=== PATIENT | female | born 2000 | race Hispanic/Latino ===

== ENCOUNTER 2018-10-29 15:11 | Emergency (ER) | payer BC ==
[2018-10-29 15:56] VITALS: O2SAT 100; BMI 21.4
[2018-10-29] MEDS ORDERED: Sodium Chloride 0.9% 1,000 ML IV STA ×2 (16:06→17:42)
--- NOTE | 2018-10-29 16:20 | ED PDOC ---
Arrival/HPI - General Chief Complaint: GI Problem Time Seen by Provider: 10/29/18 15:20 Historian: Patient - History of Present Illness Narrative History of Present Illness (Text): 10/29/18 16:08 18-year-old female presents today with a 3 to 4-week history of upper abdominal pain with nausea and vomiting. Patient states yesterday she had a medical . Patient states she was 6 weeks prior to the termination yes terday. Patient denies any vaginal bleeding. Patient states when she saw the pay clerk for the termination of the yesterday the pay clerk did not feel that the upper abdominal pain and vomiting was related to the . Patient states she believes that she has an ulcer. Patient states she has been having on and off and worsening symptoms since she went on a severe diet over the summer. Patient denies urinary symptoms. Denies back pain. Denies chest pain or shortness of breath. No medications have been taken at home. No other complaints. Symptom Onset: Gradual Quality: Aching, Stabbing, Burning Severity Level: Moderate Past Medical History - Provider Review Nursing Documentation Reviewed: Yes - Travel History Have you recently traveled outside [place] w/in the past 3 mons?: No - Past History Past History: No Previous - Infectious Disease Hx of Infectious Diseases: None - Tetanus Immunization Tetanus Immunization: Up to Date - Psychiatric Hx Depression: Yes Hx Emotional Abuse: No Hx Physical Abuse: No Hx Substance Use: No - Surgical History Other/Comment: ear surgery when she was a baby - Anesthesia Hx Anesthesia: Yes Hx Anesthesia Reactions: No Hx Malignant Hyperthermia: No - Suicidal Assessment Feels Threatened In Home Enviroment: No Family/Social History - Physician Review Nursing Documentation Reviewed: Yes Family/Social History: Unknown Family HX Smoking Status: Never Smoked Hx Alcohol Use: No Hx Substance Use: No Hx Substance Use Treatment: No Allergies/Home Meds Allergies/Adverse Reactions: Allergies No Known Allergies Allergy (Verified 10/29/18 15:39) as per patient Review of Systems - Review of Systems Constitutional: absent: Fatigue, Fevers Respiratory: absent: SOB, Cough Cardiovascular: absent: Chest Pain, Palpitations Gastrointestinal: Abdominal Pain, Nausea, Vomiting. absent: Constipation, Diarrhea Genitourinary Female: absent: Dysuria, Frequency, Hematuria Musculoskeletal: absent: Arthralgias, Back Pain, Neck Pain Skin: absent: Rash, Pruritis Neurological: absent: Headache, Dizziness Psychiatric: absent: Anxiety, Depression Physical Exam Vital Signs Reviewed: Yes Vital Signs Temp Pulse Resp BP Pulse Ox 10/29/18 15:40 97.8 F 53 L 18 112/71 100 Temperature: Afebrile Blood Pressure: Normal Pulse: Regular Respiratory Rate: Normal Appearance: Positive for: Well-Appearing, Non-Toxic, Comfortable Pain Distress: None Mental Status: Positive for: Alert and Oriented X 3 - Systems Exam Head: Present: Atraumatic Mouth: Present: Moist Mucous Membranes Neck: Present: Normal Range of Motion Respiratory/Chest: Present: Clear to Auscultation, Good Air Exchange. No: Respiratory Distress, Accessory Muscle Use Cardiovascular: Present: Regular Rate and Rhythm, Normal S1, S2. No: Murmurs Abdomen: Present: Tenderness (+ epigastric and RUQ tenderness. ). No: Distention, Peritoneal Signs, Rebound, Guarding Back: Present: Normal Inspection. No: CVA Tenderness, Midline Tenderness, Paraspinal Tenderness Upper Extremity: Present: Normal ROM Lower Extremity: Present: Normal ROM Neurological: Present: GCS=15, Speech Normal Skin: Present: Warm, Dry, Normal Color. No: Rashes Psychiatric: Present: Alert, Oriented x 3 Medical Decision Making ED Course and Treatment: 10/29/18 16:10 Patient is nontoxic well appearing with stable vital signs presenting with upper abdominal pain over the past 3-4 weeks. Patient began to vomit in the emergency room. I again spoke with the patient. With nurse at bedside the patient again verified that she had a medical yesterday and has no intention of keeping the baby. She has agreed to taking Zofran for nausea. She was made aware that the nausea medication will cause harm to the growing fetus. Patient states she has already taking the medications for termination and has no intention of keeping the baby. CBC: wnl CMP: wnl Lipase; wnl Urinalysis: no leukocytes + ketones Ultrasound:FINDINGS: LIVER: Measures 14.5 cm. Normal echogenicity of the liver parenchyma. No mass. No intrahepatic bile duct dilatation. GALLBLADDER: There are no gallstones, wall thickening or pericholecystic fluid. The sonographic Nieto's sign is negative. COMMON BILE DUCT: Measures 3.1 mm. No stones. No dilatation. PANCREAS: Unremarkable as visualized. No mass. No ductal dilatation. RIGHT KIDNEY: Measures 10.7cm. Normal echogenicity. No calculus, mass, or hydronephrosis. LEFT KIDNEY: Measures 10.9 cm. Normal echogenicity. No calculus, mass, or hydronephrosis. SPLEEN: Normal in size and contour. No mass. AORTA: No aneurysmal dilatation. IVC: Unremarkable. OTHER FINDINGS: None. IMPRESSION: Unremarkable abdominal sonogram. Patient reassessment:pt feeling much better after medications. Discussed all results with patient in depth. Patient states she has an appointment with GI specialist Dr. Felton tomorrow in the office. Patient was advised to take Pepcid 1 tablet daily, increase fluids. Patient was advised to avoid spicy foods, greasy foods, chocolate and pasta sauce. Patient was advised immediate return if symptoms worsen persist or if new concerning symptoms develop. I will give the patient a prescription for Zofran for nausea 2 tablets until her appointment tomorrow. I will give the patient a prescription for Pepcid. Patient verbalizes understanding of discharge instructions and need for immediate followup. All aspects of this case were discussed the attending of record. Impression: Abdominal pain Pepcid one tablet daily Follow up with the GI doctor tomorrow Increase fluids Zofran 1 tablet every 8 hours as needed for nausea Follow up with primary care physician within the next 2 days Return immediately if symptoms worsen persist or if new symptoms develop: High fevers, increasing pain, vomiting, diarrhea or any other concerning symptoms develop - RAD Interpretation Radiology Orders: 10/29/18 16:05 ABDOMEN COMPLETE [US] Stat - Medication Orders Current Medication Orders: Famotidine (Pepcid) 20 mg IVP STAT STA Stop: 10/29/18 16:07 Sodium Chloride (Sodium Chloride 0.9%) 1,000 mls @ 999 mls/hr IV .Q1H1M STA Stop: 10/29/18 17:06 Disposition/Present on Arrival - Present on Arrival Any Indicators Present on Arrival: No History of DVT/PE: No History of Uncontrolled Diabetes: No Urinary Catheter: No History of Decub. Ulcer: No History Surgical Site Infection Following: None - Disposition Have Diagnosis and Disposition been Completed?: Yes Diagnosis: Abdominal pain, Nausea & vomiting Disposition: HOME/ ROUTINE Disposition Time: 17:43 Patient Plan: Discharge Patient Problems: Current Active Problems Problem Status Onset Abdominal pain Acute Nausea & vomiting Acute Condition: GOOD Discharge Instructions (ExitCare): Acute Abdomen (Belly Pain), Adult (DC), Nausea and Vomiting, Adult Additional Instructions: Pepcid one tablet daily Follow up with the GI doctor tomorrow Increase fluids Zofran 1 tablet every 8 hours as needed for nausea Follow up with primary care physician within the next 2 days Return immediately if symptoms worsen persist or if new symptoms develop: High fevers, increasing pain, vomiting, diarrhea or any other concerning symptoms develop Prescriptions: Famotidine [Pepcid] 20 mg PO DAILY #30 tab Ondansetron [Zofran] 4 mg PO Q8H PRN #2 tab PRN Reason: Nausea/Vomiting Referrals: Ceasar Felton DO [Staff Provider] - Follow up with primary Mary Nicholson MD [Medical Doctor] - Follow up with primary [facility] [Outside] - Follow up with primary Forms: [employer] (Swedish)
[2018-10-29 16:52] LABS: BASO # 0.03 K/mm3 (0.0-2.0); BASO % 0.3 % (0.0-3.0); EOS % 0.2 % (1.5-5.0); HEMOGLOBIN 12.8 g/dL (12.0-16.0); LYMPH # 1.3 (1.2-3.4); LYMPH % 12.6 % (22.0-35.0); MEAN CELL VOLUME 87.2 fl (80.0-105.0); MEAN CORPUSCULAR HEMOGLOBIN 28.8 pg (25.0-35.0); MEAN CORPUSCULAR HGB CONC 33.1 g/dl (31.0-37.0); MEAN PLATELET VOLUME 10.5 fl (7.0-11.0); MONO # 0.6 (0.1-0.6); MONO % 5.3 % (1.0-6.0); RBC 4.44 10^6/uL (3.5-6.1); RED CELL DISTRIBUTION WIDTH 13.1 % (11.5-14.5); WHITE BLOOD COUNT 10.4 10^3/uL (4.5-11.0)
[2018-10-29 16:59] LABS: URINE BILIRUBIN SMALL (NEGATIVE); URINE BLOOD TRACE-LYSED (NEGATIVE); URINE GLUCOSE (UA) NEGATIVE (NEGATIVE); URINE LEUKOCYTE ESTERASE NEGATIVE Leu/uL (NEGATIVE); URINE PROTEIN 30 mg/dL (<30 mg/dL); URINE UROBILINOGEN 0.2 E.U./dL (<1 E.U./dL)
[2018-10-29 17:00] LABS: URINE COLOR DARK YELLOW (YELLOW)
[2018-10-29 17:01] LABS: URINE APPEARANCE SLIGHT-CLOUDY (CLEAR)
[2018-10-29 17:02] LABS: ALB/GLOB RATIO 1.3 (1.1-1.8); ALBUMIN 4.3 g/dL (3.0-4.8); ALT/SGPT 18 U/L (7-56); AST/SGOT 19 U/L (14-36); BLOOD UREA NITROGEN 13 mg/dL (7-21); GFR NON-AFRICAN AMERICAN > 60; LIPASE 53 U/L (23-300)
--- NOTE | 2018-10-29 17:40 | US ---
Date of service: 10/29/2018 HISTORY: Abd pain x 3-4 weeks. medical yesterday COMPARISON: None. TECHNIQUE: Grayscale imaging was performed. FINDINGS: LIVER: Measures 14.5 cm. Normal echogenicity of the liver parenchyma. No mass. No intrahepatic bile duct dilatation. GALLBLADDER: There are no gallstones, wall thickening or pericholecystic fluid. The sonographic Nieto's sign is negative. COMMON BILE DUCT: Measures 3.1 mm. No stones. No dilatation. PANCREAS: Unremarkable as visualized. No mass. No ductal dilatation. RIGHT KIDNEY: Measures 10.7cm. Normal echogenicity. No calculus, mass, or hydronephrosis. LEFT KIDNEY: Measures 10.9 cm. Normal echogenicity. No calculus, mass, or hydronephrosis. SPLEEN: Normal in size and contour. No mass. AORTA: No aneurysmal dilatation. IVC: Unremarkable. OTHER FINDINGS: None. IMPRESSION: Unremarkable abdominal sonogram.
[2018-10-29 19:34] VITALS: TEMP 98
[2018-10-29 20:34] VITALS: BP 117/65; PULSE 75; RESP 18
== END 2018-10-29 19:45 | disposition home or self-care (01) ==
LOC: ED 15:11
DX: R10.9 Unspecified abdominal pain (principal); R11.2 Nausea with vomiting, unspecified; Z98.890 Other specified postprocedural states
CPT/HCPCS: 76700; 80053; 81001; 83690; 85025; 96361; 96374; 96375; 99284; J2405; J7030

== ENCOUNTER 2018-11-01 04:15 | Emergency (ER) | payer BC ==
[2018-11-01 04:23] VITALS: BMI 21.4
[2018-11-01 04:38] VITALS: BP 120/61; PULSE 58; RESP 18; TEMP 97.8; O2SAT 98
[2018-11-01] MEDS ORDERED: Sodium Chloride 0.9% 1,000 ML IV STA (04:42)
[2018-11-01 05:20] LABS: BASO # 0.01 {null, K/mm3} (0.0-2.0); BASO % 0.1 % (0.0-3.0); EOS # 0.1 (0.0-0.7); EOS % 0.8 % (1.5-5.0); HEMOGLOBIN 12.3 g/dL (12.0-16.0); LYMPH % 23.4 % (22.0-35.0); MEAN CELL VOLUME 87.5 fl (80.0-105.0); MEAN CORPUSCULAR HGB CONC 33.2 g/dl (31.0-37.0); MEAN PLATELET VOLUME 10.7 fl (7.0-11.0); MONO # 0.6 (0.1-0.6); MONO % 7.2 % (1.0-6.0); RBC 4.24 {null, 10^6/uL} (3.5-6.1); RED CELL DISTRIBUTION WIDTH 13.2 % (11.5-14.5); WHITE BLOOD COUNT 8.4 {null, 10^3/uL} (4.5-11.0)
--- NOTE | 2018-11-01 05:20 | ED PDOC ---
Arrival/HPI - General Chief Complaint: Abdominal Pain Time Seen by Provider: 11/01/18 04:20 - History of Present Illness Narrative History of Present Illness (Text): 18 yr old F w/ GERD, ulcer and 4d s/p elective w/ medication p/w abdominal pain, nausea, vomiting. Pt notes epigastric abdominal pain similar to when she was here 3d prior, and feels exactly alike her previous epigastric pain for which she had intermittently for one month. She deneis any ruq abd pain, lower pelvic pain, periumbilical pain, RLQ or LLQ pain. She denies any vaginal discharge, urinary complaints or crampy like menstrual pain. She denies any back pain. She notes x2 episodes of nbnb vomiting. She denies any diarrhea, constipation, dark or bloody stool. No abnormal vaginal d/c. No fever, chills or night sweats. No other complaints. OBGYN: She does not remember the name GI: Dr. Nugent 11/01/18 05:49 Past Medical History - Past History Past History: No Previous - Infectious Disease Hx of Infectious Diseases: None - Tetanus Immunization Tetanus Immunization: Up to Date - Psychiatric Hx Depression: Yes Hx Emotional Abuse: No Hx Physical Abuse: No Hx Substance Use: Yes (weed) - Surgical History Other/Comment: ear surgery when she was a baby - Anesthesia Hx Anesthesia: Yes Hx Anesthesia Reactions: No Hx Malignant Hyperthermia: No - Suicidal Assessment Feels Threatened In Home Enviroment: No Family/Social History Family/Social History: Unknown Family HX Smoking Status: Never Smoked Hx Alcohol Use: No Hx Substance Use: Yes (weed) Hx Substance Use Treatment: No Allergies/Home Meds Allergies/Adverse Reactions: Allergies No Known Allergies Allergy (Verified 10/29/18 15:39) as per patient Review of Systems - Review of Systems Constitutional: absent: Fatigue, Weight Change Eyes: absent: Vision Changes, Photophobia ENT: absent: Hearing Changes, Tinnitus Respiratory: absent: SOB, Cough, Sputum Cardiovascular: absent: Chest Pain, Palpitations Gastrointestinal: Abdominal Pain, Nausea, Vomiting. absent: Stool Changes, Constipation, Diarrhea, Appetite Changes, Hematochezia, Hematemesis, Anorexia, Food Intolerance Genitourinary Female: absent: Dysuria, Frequency, Hematuria Musculoskeletal: absent: Arthralgias, Back Pain, Neck Pain Skin: absent: Rash, Pruritis, Skin Lesions Neurological: absent: Headache, Dizziness Endocrine: absent: Diaphoresis, Polyuria Hemo/Lymphatic: absent: Adenopathy, Easy Bleeding Psychiatric: absent: Anxiety, Depression Physical Exam Vital Signs Temp Pulse Resp BP Pulse Ox 11/01/18 04:27 97.8 F 58 L 18 120/61 98 Temperature: Afebrile Blood Pressure: Normal Respiratory Rate: Normal Appearance: Positive for: Well-Appearing, Non-Toxic, Comfortable Pain Distress: None Mental Status: Positive for: Alert and Oriented X 3 - Systems Exam Head: Present: Atraumatic, Normocephalic Pupils: Present: PERRL Extroacular Muscles: Present: EOMI Conjunctiva: Present: Normal Mouth: Present: Moist Mucous Membranes Neck: Present: Normal Range of Motion. No: Meningeal Signs, MIDLINE TENDERNESS Respiratory/Chest: Present: Clear to Auscultation, Good Air Exchange. No: Respiratory Distress, Accessory Muscle Use Cardiovascular: Present: Regular Rate and Rhythm, Normal S1, S2. No: Murmurs Abdomen: Present: Tenderness (epigastric), Normal Bowel Sounds. No: Distention, Peritoneal Signs, McBurney's Point Tender, Rovsing's Sign Present Back: Present: Normal Inspection. No: CVA Tenderness, Midline Tenderness Upper Extremity: Present: Normal Inspection. No: Cyanosis, Edema Lower Extremity: Present: Normal Inspection. No: Edema Neurological: Present: GCS=15, CN II-XII Intact, Speech Normal Skin: Present: Warm, Dry, Normal Color. No: Rashes Psychiatric: Present: Alert, Oriented x 3, Normal Insight, Normal Concentration Medical Decision Making ED Course and Treatment: 18 yr old F w/ GERD, ulcer and 4d s/p elective w/ medication p/w abdominal pain, nausea, vomiting. On exam, well appearing in NAD, mild epigastric pain on palpation. No dark or bloody stool. No peritoneal signs or guarding. Given largely benign exam, recent visit for simliar complaint, will seek labs, treatment for GERD like pain and re-eval for n/v. 11/01/18 06:20 Pt notes pain fully resolved. Tolerating clears. States she is ready to go home. labs unremarkable, repeat abd exam unremarkable, pt now non-ttp and remains without any peritoneal or guarding. clear for d/c home with return indications and f/u. - Medication Orders Current Medication Orders: Sodium Chloride (Sodium Chloride 0.9%) 1,000 mls @ 999 mls/hr IV .Q1H1M STA Stop: 11/01/18 05:42 Discontinued Medications Famotidine (Pepcid) 20 mg IVP STAT STA Stop: 11/01/18 04:43 Metoclopramide HCl (Reglan) 10 mg IVP STAT STA Stop: 11/01/18 04:43 Disposition/Present on Arrival - Present on Arrival Any Indicators Present on Arrival: No History of DVT/PE: No History of Uncontrolled Diabetes: No Urinary Catheter: No History of Decub. Ulcer: No History Surgical Site Infection Following: None - Disposition Have Diagnosis and Disposition been Completed?: Yes Diagnosis: Epigastric pain Disposition: HOME/ ROUTINE Disposition Time: 06:19 Patient Problems: Current Active Problems Problem Status Onset Epigastric pain Acute Condition: STABLE Discharge Instructions (ExitCare): Acute Abdomen (Belly Pain), Adult (DC), Nausea and Vomiting, Adult Additional Instructions: HEYDI COX, thank you for letting us take care of you today. Your provider was Dirk Nelson and you were treated for abdominal pain. The emergency medical care you received today was directed at your acute symptoms. If you were prescribed any medication, please fill it and take as directed. It may take several days for your symptoms to resolve. Return to the Emergency Department if your symptoms worsen, do not improve, or if you have any other problems. Please contact your doctor or call one of the physicians/clinics you have been referred to that are listed on the Patient Visit Information form that is included in your discharge packet. Bring any paperwork you were given at discharge with you along with any medications you are taking to your follow up visit. Our treatment cannot replace ongoing medical care by a primary care provider outside of the emergency department. Thank you for allowing the [facility] team to be part of your care today. If you had an X-Ray or CT scan: A Radiologist will review the ED reading if any change in treatment is needed we will contact you. If you had a blood, urine, or wound culture: It will take several days for the results, if any change in treatment is needed we will contact you. If you had an STI test: It will take 48 hours for the results. Please call after 1 week if you have not heard back. Referrals: Ceasar Felton DO [Staff Provider] - Follow up with primary Grazyna Rapp MD [Staff Provider] - Follow up with primary Mary Nicholson MD [Medical Doctor] - Follow up with primary [email or web address] [Outside] - Follow up with primary [facility] [Outside] - Follow up with primary [facility] [Outside] - Follow up with primary [facility] [Outside] - Follow up with primary Forms: [email or web address] (Italian), WORK NOTE
[2018-11-01 06:17] LABS: ALB/GLOB RATIO 1.4 (1.1-1.8); ALBUMIN 4.1 g/dL (3.0-4.8); ALT/SGPT 14 U/L (7-56); AST/SGOT 17 U/L (14-36); BLOOD UREA NITROGEN 10 mg/dL (7-21); CALCIUM 9.6 mg/dL (8.4-10.5); GFR NON-AFRICAN AMERICAN > 60; LIPASE 130 U/L (23-300)
== END 2018-11-01 06:35 | disposition home or self-care (01) ==
LOC: ED 04:15
DX: R10.13 Epigastric pain (principal)
CPT/HCPCS: 80053; 81025; 83690; 85025; 96374; 96375; 99284; J2765; J7030

== ENCOUNTER 2018-11-04 08:33 | Emergency (ER) | payer BC ==
[2018-11-04 08:33] VITALS: BMI 21.4
[2018-11-04] MEDS ORDERED: Sodium Chloride 0.9% 1,000 ML IV STA (09:22)
[2018-11-04 10:04] LABS: BASO # 0.02 K/mm3 (0.0-2.0); BASO % 0.3 % (0.0-3.0); EOS # 0.1 (0.0-0.7); EOS % 1.7 % (1.5-5.0); HEMOGLOBIN 11.8 g/dL (12.0-16.0); LYMPH # 1.5 (1.2-3.4); LYMPH % 23.1 % (22.0-35.0); MEAN CELL VOLUME 86.9 fl (80.0-105.0); MEAN CORPUSCULAR HEMOGLOBIN 29.1 pg (25.0-35.0); MEAN CORPUSCULAR HGB CONC 33.4 g/dl (31.0-37.0); MEAN PLATELET VOLUME 10.6 fl (7.0-11.0); MONO # 0.4 (0.1-0.6); MONO % 5.5 % (1.0-6.0); RBC 4.06 10^6/uL (3.5-6.1); RED CELL DISTRIBUTION WIDTH 13.2 % (11.5-14.5); WHITE BLOOD COUNT 6.5 10^3/uL (4.5-11.0)
[2018-11-04 10:07] LABS: ALB/GLOB RATIO 1.4 (1.1-1.8); ALBUMIN 4.1 g/dL (3.0-4.8); ALT/SGPT 12 U/L (7-56); AST/SGOT 16 U/L (14-36); BLOOD UREA NITROGEN 12 mg/dL (7-21); CALCIUM 9.6 mg/dL (8.4-10.5); GFR NON-AFRICAN AMERICAN > 60; LIPASE 57 U/L (23-300)
--- NOTE | 2018-11-04 10:46 | ED PDOC ---
Arrival/HPI - General Chief Complaint: Abdominal Pain Time Seen by Provider: 11/04/18 09:03 Historian: Patient - History of Present Illness Narrative History of Present Illness (Text): 11/04/18 09:03 Heydi Cox is a 18 year old female, with a past medical history of GERD, gastric ulcers and 1 week s/p elective , who presents to the emergency department complaining of sharp epigastric pain, nausea, and vomiting since 1 month. Patient informs visiting PMD who appreciated ulcers and scheduled endoscopy for 11/12/18. Patient also notes constipation and states she is dehydrated. Patient informs taking prescribed medications from PMD orally causes nausea / vomiting and requests medications via IV. Patient denies fevers, chills, headache, dizziness, dysuria, hematuria, diarrhea, vaginal bleeding / discharge, or any other complaints. Time/Duration: Other (1 month) Symptom Onset: Gradual Symptom Course: Unchanged Quality: Stabbing (episgastric pain described as "sharp") Activities at Onset: Light Context: Home Past Medical History - Provider Review Nursing Documentation Reviewed: Yes - Past History Past History: No Previous - Infectious Disease Hx of Infectious Diseases: None - Tetanus Immunization Tetanus Immunization: Up to Date - Reproductive Menopause: No - Psychiatric Hx Depression: Yes Hx Emotional Abuse: No Hx Physical Abuse: No Hx Substance Use: Yes (weed) - Surgical History Other/Comment: ear surgery when she was a baby - Anesthesia Hx Anesthesia: Yes Hx Anesthesia Reactions: No Hx Malignant Hyperthermia: No - Suicidal Assessment Feels Threatened In Home Enviroment: No Family/Social History - Physician Review Nursing Documentation Reviewed: Yes Family/Social History: Unknown Family HX Smoking Status: Never Smoked Hx Alcohol Use: No Hx Substance Use: Yes (weed) Hx Substance Use Treatment: No Allergies/Home Meds Allergies/Adverse Reactions: Allergies No Known Allergies Allergy (Verified 10/29/18 15:39) as per patient Review of Systems - Physician Review All systems were reviewed & negative as marked: Yes - Review of Systems Constitutional: absent: Fevers, Other (chills ) Gastrointestinal: Abdominal Pain (epigastric), Constipation, Nausea, Vomiting. absent: Diarrhea Genitourinary Female: absent: Dysuria, Hematuria, Vaginal Bleeding, Vaginal Discharge Neurological: absent: Headache, Dizziness Physical Exam Vital Signs Reviewed: Yes Vital Signs Temp Pulse Resp BP Pulse Ox 11/04/18 08:47 99.1 F 72 18 102/65 100 Temperature: Afebrile Blood Pressure: Normal Pulse: Regular Respiratory Rate: Normal Appearance: Positive for: Well-Appearing, Non-Toxic, Comfortable Pain Distress: None Mental Status: Positive for: Alert and Oriented X 3 - Systems Exam Head: Present: Atraumatic, Normocephalic Pupils: Present: PERRL Extroacular Muscles: Present: EOMI Conjunctiva: Present: Normal Mouth: Present: Moist Mucous Membranes Neck: Present: Normal Range of Motion Respiratory/Chest: Present: Clear to Auscultation, Good Air Exchange. No: Respiratory Distress, Accessory Muscle Use, Wheezes, Rales, Rhonchi Cardiovascular: Present: Regular Rate and Rhythm, Normal S1, S2. No: Murmurs, Rub, Gallop Abdomen: Present: Tenderness (epigastric), Normal Bowel Sounds. No: Distention, Peritoneal Signs, Rebound, Guarding Back: Present: Normal Inspection Upper Extremity: Present: Normal Inspection. No: Cyanosis, Edema Lower Extremity: Present: Normal Inspection. No: Edema Neurological: Present: GCS=15, CN II-XII Intact, Speech Normal Skin: Present: Warm, Dry, Normal Color. No: Rashes Psychiatric: Present: Alert, Oriented x 3, Normal Insight, Normal Concentration Medical Decision Making ED Course and Treatment: 11/04/18 09:03 Impression: Heydi Cox is a 18 year old female, with a past medical history GERD, gastric ulcers, and 1 week s/p elective , who presents to the emergency department complaining of sharp epigastric pain, nausea, and vomiting. Plan: -- Labs -- Pepcid -- Toradol -- Zofran -- IV Fluids -- Reassess and disposition Prior Visits: Notes and results from previous visits were reviewed. Progress Notes: On re-eval, patient reports improvement. No vomiting noted in the emergency department. Patient stable for discharge. She has an endoscopy scheduled for 11/12, advised her to keep this appointment. - Lab Interpretations Lab Results: Total Bilirubin 0.4 mg/dL (0.2-1.3) 11/04/18 09:45 AST 16 U/L (14-36) 11/04/18 09:45 ALT 12 U/L (7-56) 11/04/18 09:45 Alkaline Phosphatase 32 U/L (38-126) L 11/04/18 09:45 Total Protein 7.0 g/dL (5.8-8.3) 11/04/18 09:45 Albumin 4.1 g/dL (3.0-4.8) 11/04/18 09:45 Globulin 2.9 gm/dL 11/04/18 09:45 Albumin/Globulin Ratio 1.4 (1.1-1.8) 11/04/18 09:45 Lipase 57 U/L (23-300) 11/04/18 09:45 - Medication Orders Current Medication Orders: Discontinued Medications Sodium Chloride (Sodium Chloride 0.9%) 1,000 mls @ 999 mls/hr IV .Q1H1M STA Stop: 11/04/18 10:22 Last Admin: 11/04/18 09:51 Dose: 999 mls/hr eMAR Start Stop Document 11/04/18 09:51 CD (Rec: 11/04/18 09:51 CD [facility] [id number] Intravenous Solution Start Date 11/04/18 Start Time 09:51 End Date 11/04/18 End time 10:52 Total Infusion Time 61 Ketorolac Tromethamine (Toradol) 30 mg IVP STAT STA Stop: 11/04/18 09:23 Last Admin: 11/04/18 09:51 Dose: 30 mg MAR Pain Assessment Document 11/04/18 09:51 CD (Rec: 11/04/18 09:52 CD [facility] [place] Pain Reassessment Is this a pain reassessment? No Sleep Is patient sleeping during reassessment? No Presence of Pain Presence of Pain Yes Pain Scale Used Protocol: PSCALES Pain Scale Used Numeric Description Intensity of Pain at present 4 IVP Administration Document 11/04/18 09:51 CD (Rec: 11/04/18 09:52 CD [facility] [facility] [place] Charges for Administration # of IVP Administrations 1 Ondansetron HCl (Zofran Inj) 4 mg IVP STAT STA Stop: 11/04/18 09:23 Last Admin: 11/04/18 09:52 Dose: 4 mg IVP Administration Document 11/04/18 09:52 CD (Rec: 11/04/18 09:52 CD [facility] [place] Charges for Administration # of IVP Administrations 1 - Scribe Statement The provider has reviewed the documentation as recorded by the Scribe Henrry Palomares All medical record entries made by the Scribe were at my direction and personally dictated by me. I have reviewed the chart and agree that the record accurately reflects my personal performance of the history, physical exam, medi blake decision making, and the department course for this patient. I have also personally directed, reviewed, and agree with the discharge instructions and disposition. Disposition/Present on Arrival - Present on Arrival Any Indicators Present on Arrival: No History of DVT/PE: No History of Uncontrolled Diabetes: No Urinary Catheter: No History of Decub. Ulcer: No History Surgical Site Infection Following: None - Disposition Have Diagnosis and Disposition been Completed?: Yes Diagnosis: Epigastric pain Disposition Time: 11:39 Condition: STABLE Discharge Instructions (ExitCare): Gastric Ulcer (DC) Additional Instructions: HEYDI COX, thank you for letting us take care of you today. Your provider was Columba Thompson MD and you were treated for abdominal pain. The emergency medical care you received today was directed at your acute symptoms. If you were prescribed any medication, please fill it and take as directed. It may take several days for your symptoms to resolve. Return to the Emergency Department if your symptoms worsen, do not improve, or if you have any other problems. Please contact your doctor or call one of the physicians/clinics you have been referred to that are listed on the Patient Visit Information form that is included in your discharge packet. Bring any paperwork you were given at discharge with you along with any medications you are taking to your follow up visit. Our treatment cannot replace ongoing medical care by a primary care provider outside of the emergency department. Thank you for allowing the [facility] team to be part of your care today. If you had an X-Ray or CT scan: A Radiologist will review the ED reading if any change in treatment is needed we will contact you. If you had a blood, urine, or wound culture: It will take several days for the results, if any change in treatment is needed we will contact you. If you had an STI test: It will take 48 hours for the results. Please call after 1 week if you have not heard back. Referrals: FAMILY PROVIDER,NO [Primary Care Provider] - Follow up with primary Forms: [employer] ([place]), SCHOOL NOTE
[2018-11-04 11:40] VITALS: BP 109/71; PULSE 79; RESP 16; TEMP 99; O2SAT 99
== END 2018-11-04 11:39 | disposition home or self-care (01) ==
LOC: ED 08:33
DX: R10.13 Epigastric pain (principal)
CPT/HCPCS: 80053; 81025; 83690; 83735; 84100; 85025; 96361; 96374; 96375; 99283; J1885; J2405; J7030